=== PATIENT | female | born 2000 | race American Indian/Alaskan Native ===

== ENCOUNTER 2021-03-01 10:50 | Emergency (ER) | payer OTHER ==
[2021-03-01 11:22] VITALS: BP 130/82
[2021-03-01] MEDS ORDERED: ACETAMINOPHEN 325 MG TAB PO ONE (11:51)
--- NOTE | 2021-03-01 11:58 | Event Note ---
ED Screening Note Date of service: 03/01/21 Time: 11:56 ED Screening Note: This initial assessment/diagnostic orders/clinical plan/treatment(s) is/are subject to change based on patients health status, clinical progression and re- assessment by fellow clinical providers in the ED. Further treatment and workup at subsequent clinical providers discretion. Patient/guardian urged not to elope from the ED as their condition may be serious if not clinically assessed and managed. Patient is a 20-year-old female with reported history of asthma who presents to emergency department stating that she thinks she has a concussion. Patient reports that she ran into a cart couple days ago but did not hit her head. When asked why she thinks she has a concussion is because she has memory problems as well as headache. Headache is mild located on the right side of the forehead. Patient was noted to be responding to internal stimuli by nursing staff. Here patient has disorganized thoughts and cannot answer questions properly. Patient also unable to give any family member or contact information. Given this I am concerned for some acute psychosis but given report of headache we will plan for a CT scan of the brain. Initial orders include: I have placed orders for ED psych clearance, CT head. Urine drug screen.
[2021-03-01 12:39] LABS: Basophils % (Auto) 0.5 % (0.0-1.8); Eosinophils % (Auto) 0.6 % (0.0-4.3); Hematocrit 38.5 % (30.3-42.9); Hemoglobin 12.6 gm/dl (10.1-14.3); Lymphocytes # (Auto) 2.5 K/mm3 (1.2-5.4); Lymphocytes % (Auto) 50.2 % (13.4-35.0); Mean Corpuscular HGB Conc 33 % (30-34); Mean Corpuscular Volume 91 fl (79-97); Monocytes # (Auto) 0.4 K/mm3 (0.0-0.8); Monocytes % (Auto) 7.3 % (0.0-7.3); Platelet Count 190 K/mm3 (140-440); Red Blood Count 4.25 M/mm3 (3.65-5.03); Red Cell Distribution Width 12.9 % (13.2-15.2)
--- NOTE | 2021-03-01 12:45 | Cat Scan Report ---
CT HEAD WITHOUT CONTRAST INDICATION: altered mental status. TECHNIQUE: All CT scans at this location are performed using CT dose reduction for ALARA by means of automated e xposure control. COMPARISON: None available. FINDINGS: HEMORRHAGE: None. EXTRA-AXIAL SPACES: Normal in size and morphology for the patient's age. VENTRICULAR SYSTEM: Normal in size and morphology for the patient's age. BRAIN PARENCHYMA: No acute findings. MIDLINE SHIFT OR HERNIATION: None. ORBITS: Normal as visualized. SOFT TISSUES OF HEAD: Normal. CALVARIUM: Normal. VISUALIZED PARANASAL SINUSES AND MASTOID AIR CELLS: Clear. ADDITIONAL FINDINGS: None. IMPRESSION: 1. No acute intracranial abnormality. Signer Name: Hussein Cisneros MD Signed: 03/01/2021 12:41 PM Workstation Name: [id number]
[2021-03-01 13:00] LABS: BUN/Creatinine Ratio 23; Blood Urea Nitrogen 18 mg/dL (7-17); Calcium 8.7 mg/dL (8.4-10.2); Hemolysis Index 10
[2021-03-01] MEDS ORDERED: SODIUM CHLORIDE 0.9% 1000 ML 1,000 ML IV ONE (13:09)
--- NOTE | 2021-03-01 13:10 | Emergency Department Report ---
HPI - General Chief Complaint: Head Injury Time Seen by Provider: 03/01/21 12:48 - HPI HPI: 20-year-old female with history of asthma presents due to concern for concussion. She states that she went to a cart at work 2 days ago injured her right upper extremity. She also says that she slipped and fell yesterday hitting her head on the floor. She did not lose consciousness. Since then she has gradually developed a mild headache and memory problems and so she wanted to be checked out. She says she was seen at [facility] yesterday for her a rm and had x-rays of her shoulder, arm, and wrist. This revealed a fracture of her wrist and she was placed into a splint. However, she states she forgot to mention her head injury at that time. She denies SI/HI or auditory/visual hallucinations. Other than the headache and the memory problems she denies any other medical symptoms or complaints including fever/chills, vision change, neck pain, back pain, shortness of breath, chest pain, cough, abdominal pain, nausea/vomiting, focal weakness, sensory changes, or any other complaints. ED Past Medical Hx - Past Medical History Previous Medical History?: Yes Additional medical history: asthma ED Review of Systems ROS: Stated complaint: POSSIBLE CONCUSSION Other details as noted in HPI Constitutional: denies: chills, fever Eyes: denies: eye pain, vision change ENT: denies: throat pain, congestion Respiratory: denies: cough, shortness of breath Cardiovascular: denies: chest pain, palpitations Gastrointestinal: denies: abdominal pain, nausea, vomiting Genitourinary: denies: dysuria, frequency Musculoskeletal: denies: back pain, joint swelling Skin: denies: rash, lesions Neurological: headache, other (memory issues). denies: weakness, numbness, paresthesias Psychiatric: denies: anxiety, depression, auditory hallucinations, visual hallucinations, homicidal thoughts, suicidal thoughts Physical Exam - Physical Exam Vital Signs: Vital Signs 03/01/21 11:20 Temperature 98.2 F Pulse Rate 73 Respiratory 18 Rate Blood Pressure 130/82 [Right] O2 Sat by Pulse 99 Oximetry Physical Exam: GENERAL: Well developed and well nourished. No acute distress HEAD: Normocephalic. Possible frontal contusion noted to the forehead. ENT: Moist mucous membranes. EYES: Extraocular movements are intact. Pupils are equal round and reactive to light bilaterally NECK: Supple. Full ROM is intact. Trachea is midline. LUNGS: Nonlabored breathing. Equal chest rise bilaterally. Clear to auscultation bilaterally. CARDIOVASCULAR: Regular rate and rhythm. No murmurs or rubs. VASCULAR: Cap refill < 2 seconds ABDOMEN: Abdomen is soft and nondistended. There is no significant tenderness, guarding or rebound. SKIN: Skin is warm and dry NEURO: Patient is awake, alert, and oriented. continuous improvement analyst II-XII grossly intact. No focal deficits. Normal motor and sensory exam throughout. Normal speech. MUSCULOSKELETAL: Right short arm splint is in place. BACK/SPINE: No midline tenderness or step-offs of the C/T/L spine. No costovertebral angle tenderness. ED Course Vital Signs 03/01/21 11:20 Temperature 98.2 F Pulse Rate 73 Respiratory 18 Rate Blood Pressure 130/82 [Right] O2 Sat by Pulse 99 Oximetry ED Medical Decision Making - Lab Data Result diagrams: 03/01/21 11:59 03/01/21 11:59 - Radiology Data Radiology results: report reviewed - Medical Decision Making 20-year-old female presents with concern for concussion due to memory issues and mild headache after she fell and hit her head on the floor yesterday. She is afebrile and with normal vital signs. She is alert and oriented x4 and has a nonfocal neurologic exam. There is a possible contusion to the forehead. We will obtain labs and CT of the head to assess for evidence of intracranial bleeding versus other pathology to explain the patient's symptoms. Noncon CT of the head reveals no acute abnormalities. The patient states that she wants to sign out AMA. I did was able to discuss with her the results of the CT scan and to convey to her that negative CT does not mean that she does not have a concussion. I encouraged her to follow-up with the primary care doct or. She expressed understanding of the risks of leaving AGAINST MEDICAL ADVICE including temporary/permanent disability and even . Critical care attestation.: If time is entered above; I have spent that time in minutes in the direct care of this critically ill patient, excluding procedure time. ED Disposition Clinical Impression: Concussion, Dehydration Disposition: 07 LEFT AGAINST MEDICAL ADVICE Is pt being admited?: No Condition: Stable Referrals: PRIMARY CARE, [Primary Care Provider] - 3-5 Days
[2021-03-01] MEDS ORDERED: SODIUM CHLORIDE 0.9% 1000 ML 1,000 ML ONE (13:15)
== END 2021-03-01 13:28 | disposition left against medical advice (07) ==
LOC: ED 10:50
DX: S06.0X9A Concussion with loss of consciousness of unspecified duration, initial encounter (principal); E86.0 Dehydration; J45.909 Unspecified asthma, uncomplicated; W01.0XXA Fall on same level from slipping, tripping and stumbling without subsequent striking against object, initial encounter; Y93.89 Activity, other specified; Y92.89 Other specified places as the place of occurrence of the external cause; Y99.8 Other external cause status
CPT/HCPCS: 36415; 70450; 80048; 84703; 85025; 99284; J7030; 80320; Q0162; G0480